=== PATIENT | male | born 1970 | race Caucasian/White ===

== ENCOUNTER 2018-10-31 20:15 | Emergency (ER) | payer OTHER ==
[~2018-10-31] VITALS: Ht 190.5 cm; Wt 109.1 kg
[2018-10-31 21:00] LABS: BASO # 0.1 10^3/uL (0.0-0.2); BASO % 0.6 % (0.0-1.0); EOS # 0.2 10^3/uL (0.0-0.50); EOS % 1.5 % (0.0-3.0); HEMATOCRIT 43.7 % (42.0-52.0); HEMOGLOBIN 14.7 g/dl (13.5-17.5); LYMPH # 3.2 10^3/uL (1.5-4.5); LYMPH % 29.3 % (24.0-44.0); MEAN CORPUSCULAR HEMOGLOBIN 28.9 pg (27.0-33.0); MEAN CORPUSCULAR HGB CONC 33.6 g/dl (32.0-36.5); MEAN CORPUSCULAR VOLUME 85.9 fl (80.0-96.0); MONO # 0.9 10^3/uL (0.0-0.8); MONO % 8.1 % (0.0-5.0); NEUTROPHILS # 6.6 10^3/uL (1.8-7.7); PLATELET COUNT, AUTOMATED 289 10^3/uL (150-450); RED BLOOD COUNT 5.09 10^6/uL (4.30-6.10)
[2018-10-31] MEDS ORDERED: ASPIRIN 325 MG TAB PO ONE (21:00)
[2018-10-31 21:04] LABS: INR 0.94; PROTHROMBIN TIME 12.7 SECONDS (12.1-14.4)
[2018-10-31 21:05] LABS: PARTIAL THROMBOPLASTIN TIME 49.5 SECONDS (25.4-37.6)
[2018-10-31 22:38] LABS: BLOOD UREA NITROGEN 14 MG/DL (7-18); CALCIUM LEVEL 9.2 MG/DL (8.5-10.1); CARBON DIOXIDE LEVEL 26 MEQ/L (21-32); CHLORIDE LEVEL 105 MEQ/L (98-107); CPK CREATINE PHOSPHOKINASE 144 U/L (39-308); CREATININE FOR GFR 0.83 MG/DL (0.70-1.30); GLOMERULAR FILTRATION RATE > 60.0 (>60); GLUCOSE, FASTING 103 MG/DL (70-100); SODIUM LEVEL 139 MEQ/L (136-145); TROPONIN I < 0.02 NG/ML (< 0.10)
[2018-10-31] MEDS ORDERED: ISOVUE-370 76% 125ML VIAL (Q9967 PER ML) As Ordered ONE (22:59)
[2018-10-31] MEDS ORDERED: NS 1,000 ML IV ONE (23:00)
--- NOTE | 2018-10-31 23:58 | REPVR ---
EXAM: CT Angiography Chest With Contrast EXAM DATE/TIME: 10/31/2018 11:02 PM CLINICAL HISTORY: 48 years old, male; Pain; Chest pain; Type not specified; Additional info: Cp TECHNIQUE: Imaging protocol: Axial computed tomographic angiography images of the chest with intravenous contrast using CT angiography protocol. Coronal and sagittal reformatted images were created and reviewed. 3D rendering: MIP reconstructed images were created and reviewed. Radiation optimization: All CT scans at this facility use at least one of these dose optimization techniques: automated exposure control; mA and/or kV adjustment per patient size (includes targeted exams where dose is matched to clinical indication); or iterative reconstruction. Contrast material: iso Contrast volume: 75 ml Contrast route: ac COMPARISON: CR Chest, 2 view PA, Lat 10/31/2018 8:58 PM FINDINGS: No focal pulmonary artery filling defect to suggest acute pulmonary embolus. No thoracic aortic aneurysm or dissection. No pleural effusion or pneumothorax. Pulmonary vascular/interstitial pattern does not suggest active pulmonary edema. No enlarged lymph nodes. No suspicious lung mass or air space process. No central endobronchial lesion. Right adrenal 12 mm likely adenoma. IMPRESSION: No evidence of acute pulmonary embolus. No other acute or concerning focal intrathoracic abnormality. Small right adrenal apex are lesion measuring 12 mm. Hounsfield unit density 22 units. Statistically speaking this is most likely a benign adenoma. Or shift MRI imaging or precontrast CT could confirm this Electronically signed by: Porter Joaquin On 10/31/2018 23:58:11 PM
[2018-11-01 00:53] LABS: CPK CREATINE PHOSPHOKINASE 127 U/L (39-308); MB/CK RELATIVE INDEX 1.97 (< OR =4); TROPONIN I < 0.02 NG/ML (< 0.10)
[2018-11-01 01:30] VITALS: BP 107/55
[2018-11-01] MEDS ORDERED: ASPI81TA85 PO (01:31)
--- NOTE | 2018-11-01 07:27 | ECGEPIP ---
Stationary ECG Study [facility] - ED Test Date: 2018-10-31 Pat Name: GISSELL QUIROZ Department: Room: - Gender: M Mate Relief: CT : 1970 Requested By: JONA FREDERICK Order Number: [id number] Reading MD: Adrian Mckeon Measurements Intervals [place] Rate: 87 P: 63 WI: 178 QRS: 30 QRSD: 78 T: 0 QT: 330 QTc: 397 Interpretive Statements SINUS RHYTHM NSTTW ABNORMALITIES NO PRIORS FOR COMPARISON Electronically Signed On 11-01-2018 7:27:06 EDT by Adrian Mckeon
--- NOTE | 2018-11-01 07:36 | ECGEPIP ---
Stationary ECG Study 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
--- NOTE | 2018-11-01 10:51 | REP ---
CHEST: Two views. There is no evidence of acute infiltrate. No pleural effusion is seen. The heart is normal in size. The mediastinal silhouette is unremarkable. The visualized osseous structures are intact. IMPRESSION: No acute pulmonary disease. Electronically Signed by Martinez Merchant MD 11/01/2018 06:55 P
--- NOTE | 2018-11-03 11:37 | ED PDOC ---
Post-Departure Follow-Up certified letter sent to pt re formal report of cta chest for fu . no pcp listed . [facility] and i will fax cta chest there. if pt has pcp please fax to pcp Caro Hwang MD Nov 03, 2018 11:37
== END 2018-11-01 02:11 | disposition home or self-care (01) ==
LOC: M ED 20:15
DX: R07.89 Other chest pain (principal); I49.1 Atrial premature depolarization; I10 Essential (primary) hypertension; Z72.0 Tobacco use
CPT/HCPCS: 71046; 71275; 80048; 82550; 82553; 84484; 85025; 85610; 85730; 93005; 99284; Q9967